=== PATIENT | male | born 1935 | race Caucasian/White ===

== ENCOUNTER 2016-08-10 23:05 | Inpatient (IN) | payer MEDICARE ==
[~2016-08-10] VITALS: Ht 188 cm; Wt 136.0 kg
[~2016-08-10 23:05] MED LIST: ASPIRIN EC81 MG PO; COUMADIN5 MG PO; EUCERIN CREME57 GM TP; LANOXIN DPS0.125 MG PO; LASIX DPS40 MG PO; LEVEMIR100 UNIT/1 SQ; LIPITOR DPS40 MG PO; MAALOX DPS30 ML PO; NOVOLOG100 UNIT/2 SQ; SENOKOT S1 TAB PO; TEARS NATURAL D15 ML OU; TINACTIN 1% PWD45 GM TP; TOPROL XL DPS50 MG PO; TYLENOL DPS325 MG PO; UROXATRAL10 MG PO; VITAMIN B-121000 MCG PO; VITAMIN D-32000 UNI1 PO; ZESTRIL DPS5 MG PO
--- NOTE | 2016-08-12 10:40 | HP ---
ADMIT: 08/11/2016 RM/LOC: 310 [facility] MR#: [id number] [id number] [place], [place] [address] MIO SHERWOOD [address] [place] [address] History and Physical SEX: M AGE: 80 : 1935 Corrected: 08/11/2016 1028 njv DATE OF SERVICE: CHIEF COMPLAINT: Abdominal pain. HISTORY OF PRESENT ILLNESS: The patient is an 80-year-old [place] , presented to ER with approximately 6 hours of abdominal pain, who was given multiple doses of Dilaudid and Ativan as well as started on vancomycin and Zosyn and given 30 mL/kg fluid bolus. He had lactic acidosis. Abdominal CT which was negative for acute process. The patient is somewhat drowsy, currently difficult to obtain further history from. He notes abdominal pain. Denies chest pain. PAST MEDICAL HISTORY: AAA, stroke, gout, atrial fibrillation, hyperlipidemia, CHF, diabetes, GI bleed, atrial thrombus, ischemic heart disease. PAST SURGICAL HISTORY: Cholecystectomy. ALLERGIES: NONE. MEDICATIONS: 1. Xarelto 20 daily. 2. NovoLog 10 in the morning. 3. Levemir 43 b.i.d. 4. NovoLog 10 in the evening. 5. Atorvastatin 40 at bedtime. 6. Vitamin D3 daily. 7. Digoxin 0.125 daily. 8. Furosemide 40 daily. 9. Lisinopril 5 b.i.d. 10.Toprol 100 daily. 11.Aspirin 81 daily. 12.Vitamin B12, 1000 mcg daily. 13.Allopurinol b.i.d. 14.Senna as needed. FAMILY HISTORY: Diabetes. REVIEW OF SYSTEMS: Positive for abdominal pain. The patient denies any other symptoms. Somewhat difficult to obtain history from. SOCIAL HISTORY: Benign. OBJECTIVE: VITAL SIGNS: Temp 93.9, pulse 85, respirations 22, blood pressure 165/83, O2 saturation of 92%. GENERAL: He is alert, awake, drowsy, oriented to city and state, and pain. HEENT: Head normocephalic and atraumatic. Pupils are round and reactive to light. ADMIT: 08/11/2016 RM/LOC: 310 [facility] MR#: [id number] [address] [address] [place] [address] History and Physical SEX: M AGE: 80 : 1935 HEART: Regular. LUNGS: Decreased throughout with slight inspiratory and expiratory wheezing. ABDOMEN: Soft, somewhat tender, obese. EXTREMITIES: No clubbing or cyanosis. There is trace edema. NEURO: Cranial nerves II though XII are grossly intact. No focal, motor, or sensory deficits, somewhat difficult to perform neurologic exam. LABORATORY DATA: Troponin 2.72. Lactic acid of 9.4. Urine 1+ protein, greater than 1000 glucose. INR of 1.59. Sodium 140, potassium 3.6, chloride 104, CO2 of 19, BUN 39, glucose 350, creatinine 2.4, calcium 8.8, phosphorus 3.4 bilirubin is 0.5, total protein 7.2, albumin 3, alkaline phosphatase 117, AST 45, ALT is 23, magnesium is 2.1. is 0.049. White count 11.1, hemoglobin 15.5, platelets 246. Blood cultures, no growth. ASSESSMENT: An 80-year-old male with: 1. Fos-NQ-[id number] elevation myocardial infarction. 2. Lactic acidosis. 3. Abdominal pain. 4. Congestive heart failure. 5. Diabetes. 6. Hyperlipidemia. 7. History of cerebrovascular accident. PLAN: Surgery was contacted in the ER. We will also bring Critical Care and Cardiology on board as well as Palliative Care. I will get hold of his POA regarding goals of care. See additional orders. The patient is critically ill. ADDENDUM: CT abdomen and pelvis without contrast shows probable gastroenteritis. No other acute findings. Albert Russo MD/ pepe JOB #: [id number] CC: Albert Russo, Attending Physician Albert Russo, Family Physician Corrected: 08/11/2016 1028 njv
--- NOTE | 2016-08-20 07:22 | ER ---
ADMIT: 08/11/2016 RM/LOC: 310 [facility] MR#: [id number] [address] [address] SHERWOODMOI SALAS [address] [place] [address] Emergency Room Report SEX: M AGE: 80 : 1935 DATE: 08/10/2016 CHIEF COMPLAINT: Abdominal pain. HISTORY OF PRESENT ILLNESS: The patient is an 80-year-old male, presents to the ER complaining of abdominal pain. This began a couple hours ago, began fairly, acutely has been persistent since onset. When asked to try to describe the pain, the patient has a difficult time doing so. He states it just hurts all over and when asked directly if it is sharp pain or stabbing pain or aching pain, he says all of those. He does have some chronic back pain which is present, but is not any worse at this time. He denies specifically having any chest pain or new shortness of breath. He states he has not been sick recently. Denies any fevers, chills, has not been having any vomiting or change in bowel or bladder function. REVIEW OF SYSTEMS: A 10-point review of systems is done and otherwise negative except as in HPI. PAST MEDICAL HISTORY: Significant for: 1. Atrial fibrillation, currently on Xarelto. 2. CVA. 3. Hypertension. 4. Hyperlipidemia. 5. Gout. 6. CHF. 7. AAA repair. PAST SURGICAL HISTORY: He has had a repair of his abdominal aortic aneurysm, cholecystectomy. MEDICATIONS: See nurse's note for complete list. He had been on Coumadin, but has been switched in the last month per onto Xarelto. SOCIAL HISTORY: The patient lives with . Denies any smoking drug or alcohol use. PHYSICAL EXAMINATION: VITAL SIGNS: Initial blood pressure is 184/92, pulse 75, respirations 19, temp 96.3, saturations 95%. GENERAL: The patient is alert, but does appear uncomfortable, does appear somewhat anxious and has complained of abdominal pain when I first spoke to him. He is able to answer my questions appropriately. He is oriented. Airway is patent. HEART: Irregular, but not tachycardic. LUNGS: Clear to auscultation. ABDOMEN: Quite obese. It does appear to be diffusely tender, but very limited in my ability to do a good physical exam due to his body habitus. EXTREMITIES: He does have pedal edema in bilateral lower extremities, proximally 2+, which is not new for him. He does have some venous stasis changes in bilateral lower extremities also. ADMIT: 08/11/2016 RM/LOC: 310 [facility] MR#: [id number] [address] [address] MIO SHERWOOD [address] [place] [address] Emergency Room Report SEX: M AGE: 80 : 1935 SKIN: Warm and dry. He has good pulses in all 4 extremities. NEUROLOGICAL: Sensation and motor are grossly intact. LABORATORY DATA: White count 11.1, hemoglobin 15.5, platelets of 246. Sodium 140, potassium 3.6, carbon dioxide 19, BUN 39, glucose 350, creatinine 2.4. AST 45, ALT 23, CK 82, MB 1.2. Troponin is slightly elevated at 0.049. INR is 1.59. First lactic acid was 6.6, with a repeat lactic acid of 9.4. Procalcitonin is less than 0.05. IMAGING: EKG shows AFib rhythm. He does have some T-wave depression in IV, V, . CT scan of abdomen is done without contrast due to his elevated creatinine and it shows; 1. Fluid in the proximal colon, which is nonspecific and may be due to ileus or enteritis. 2. Infiltration of subcutaneous fat in the anterior abdominal wall. 3. Abdominal aortic aneurysm without evidence of rupture. EMERGENCY DEPARTMENT COURSE: The patient arrived, he did appear quite uncomfortable. Due to his underlying medical problems which were quite significant and his degree of pain, I am concerned that the patient could be septic, we did our sepsis routine on this patient. He did receive Dilaudid and Ativan initially for pain, which significantly improved his pain. He did receive some repeat doses of Ativan and 1 more dose of Dilaudid while he was in the ER to keep his pain controlled. When I got his lactic acid that was elevated, we went ahead and initiated our fluid resuscitation at 30 mL/kg. He also received antibiotics in the Emergency Department with a dose of Zosyn and vancomycin. I kept the patient in the Emergency Department to see if I could get any response to fluid resuscitation as far as his lactic acid. A repeat lactic acid was drawn after the majority of his fluid resuscitation was in and his lactic acid actually increased to 9.4. At this point, I believe the patient needed to go to the ICU and we arranged for admission in the ICU and I spoke to Dr. Russo, who is on this evening for city call, and I believe the patient actually been seen by family practice in followup appointment after ADMIT: 08/11/2016 RM/LOC: 310 [facility] MR#: [id number] [address] [address] MIO SHERWOOD [address] [place] [address] Emergency Room Report SEX: M AGE: 80 : 1935 previous admission. Additionally, I spoke to Dr. Brownlee, who is on for Surgery, and made him aware of my concern that the patient could potentially have some ischemic bowel. DIAGNOSES: 1. Abdominal pain. 2. Lactic acidosis. 3. Gerfh-jt-fixbhot renal insufficiency. 4. Diabetes. 5. Atrial fibrillation. The patient is admitted in critical condition to the ICU and 1-1/2 hours of critical care time was spent on this patient. Jose Lacne MD/ pepe JOB #: [id number] CC: Albert Russo MD, Attending Physician Albert Russo MD, Family Physician
--- NOTE | 2016-09-19 15:03 | CO ---
ADMIT: 08/11/2016 RM/LOC: 310 [facility] MR#: [id number] [address] [address] MIO SHERWOOD [address] [place] [address] Consultation SEX: M AGE: 80 : 1935 DATE OF CONSULTATION: 08/11/2016 ATTENDING PHYSICIAN: Albert Russo CONSULTING PHYSICIAN: Dmitriy Zamora MD REASON FOR CONSULTATION: Elevated troponin. Jesika Reid RN, scribing for Dr. Pradeep Zamora. HISTORY OF PRESENT ILLNESS: Phill is a pleasant 80-year-old gentleman I have been asked to see in Cardiology consultation by Dr. Parvez Russo for elevated troponin. He follows regularly with Dr. Rashid Pedraza, he was seen in May of this year. He has history of CVA in February after having left atrial thrombus. He also had a mobile atheroma in the ascending aorta. Last office visit, he did have some visual changes but overall had been doing stable. He presented early this morning late last night with severe abdominal pain, potential ischemic bowel. He then was found to have lactic acidosis. This morning, his lactic acid level was 10. He was having acute respiratory failure, and Critical Care Pulmonology is here with plans to intubate. He is arousable to verbal stimuli, but falls right back to sleep. He denies any chest pain. He does report shortness of breath. Cardiac enzymes were drawn. Initial set was negative. Second set shows CK of 232, MB of 8.4, and a troponin of 2.72. Family is not currently at bedside. PAST MEDICAL HISTORY: 1. Hypertension. 2. Hyperlipidemia. 3. Diabetes. 4. Left atrial thrombus. 5. 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 6. Permanent atrial fibrillation. 7. Diabetes. 8. History of stroke. ALLERGIES: NO KNOWN MEDICATION ALLERGIES. MEDICATIONS: Currently, home medications are being held. He is on Diprivan and fentanyl drip for intubation. FAMILY HISTORY: Noncontributory. SOCIAL HISTORY: Cipriano is . He lives at home with his . No tobacco use, alcohol, or drug use. REVIEW OF SYSTEMS: Unobtainable due to the patient's limited arousable state. PHYSICAL EXAMINATION: VITAL SIGNS: Blood pressure 155/83, heart rate 85, respirations 22, temperature 93.9, oxygenation 92% on mask. ADMIT: 08/11/2016 RM/LOC: 310 [facility] MR#: [id number] [address] [address] [place] [address] Consultation SEX: M AGE: 80 : 1935 GENERAL: White male, somnolent, no acute distress currently. SKIN: With venous stasis changes in lower extremities. EYES: Sclerae clear. No xanthelasmas. ENT: Oral mucosa is pink and moist. No jugular venous distention or carotid bruits. CHEST: Respirations are even and unlabored. Lungs are clear to auscultation. HEART: Irregularly irregular. ABDOMEN: Soft and nontender. MUSCULOSKELETAL: Gait is normal. EXTREMITIES: Peripheral pulses palpable. No clubbing, cyanosis or edema. PSYCHIATRIC: Not able to assess. NEURO: Not able to assess. DIAGNOSTIC DATA: Sodium 143, potassium 5.6, BUN 36, creatinine 2.5, glucose 311, AST 45, ALT 783 which is elevated from a few hours ago, magnesium 2.1. INR 1.59. CK 232, MB 8.4. Troponin 2.72 on second set. White blood cell count 13.5, hemoglobin 14.5, hematocrit 47.4, platelets 193. Lactic acid 10.5. ASSESSMENT AND PLAN: 1. Acute coronary syndrome. 2. Abnormal trop. 3. Permanent atrial fibrillation. 4. Diabetes. 5. Lactic acidosis. 6. Cerebrovascular accident. 7. Ischemic bowel, questionable. I suspect enzymes and possible EKG changes are due to metabolic abnormalities. I will continue to trend cardiac enzymes and EKG. Check echocardiogram for changes in wall motion, ejection fraction, valvular function, as well as to evaluate for any thrombus. Continue Coumadin unless Surgery needs help for bowel issues. Thank you for the consult. I have read and agree with the documentation that has been completed regarding this visit. By signing this record, I attest that the documentation was completed in my physical presence and is an accurate record of the encounter. Jesika Reid RN / Dmitriy Zamora MD / pepe JOB #: [id number] CC: Albert Russo, Attending Physician Albert Russo, Family Physician
--- NOTE | 2016-09-20 13:25 | CO ---
ADMIT: 08/11/2016 RM/LOC: 310 [facility] MR#: [id number] [address] [address] MUSTAPHA SHERWOOD [address] [place] [address] Consultation SEX: M AGE: 80 : 1935 DATE OF CONSULTATION: 08/11/2016 ATTENDING PHYSICIAN: Albert Russo CONSULTING PHYSICIAN: Teja Baer MD REASON FOR CONSULTATION: Abdominal pain and enteritis seen on CAT scan. HISTORY OF PRESENT ILLNESS: Mustapha, an 80-year-old male, who came in to the ER for abdominal pain. The patient has just been intubated, so the bulk of my history was obtained from hospital records and family history. Family reports that the patient woke up yesterday morning with intense sharp diffuse abdominal pain throughout. Denies ever having prior events like this before. Because of the symptoms, he arrived to the emergency room via ambulance. At the time of arrival of the deck worker, the patient did feel nauseous and had one times emesis. Family denies hematemesis, diarrhea, dark or bloody stools. He has had some recent problems with constipation. He has also had some night sweats for the last several days. PAST MEDICAL HISTORY: Significant for CVA, atrial fibrillation, hypertension, hyperlipidemia, gout, CHF, and AAA. PAST SURGICAL HISTORY: 1. AAA repair. 2. Laparoscopic cholecystectomy. ALLERGIES: NO KNOWN DRUG ALLERGIES. MEDICATIONS: Well documented in the chart. FAMILY HISTORY: Noncontributory. SOCIAL HISTORY: The patient denies any tobacco, alcohol, or illicit drug use. REVIEW OF SYSTEMS: CONSTITUTIONAL: The patient has been having some night sweats but denies fevers or chills. SKIN: Rash at the waist line, believed to be yeast infection but denies any changes to hair or nails or pruritus. The rest of comprehensive 10-point review of systems was performed and all other systems are negative. PHYSICAL EXAMINATION: GENERAL: The patient is intubated. HEENT: Head is normocephalic and atraumatic. Pinnae free of deformities. Nose midline. No tracheal deviation. SKIN: Negative for jaundice, clubbing, edema, pallor, or cyanosis. Rash clearing up at waistline, inferior to abdomen. LUNGS: The patient is intubated. HEART: Regular rate and rhythm. Hypotensive. ABDOMEN: Soft and nondistended. MUSCULOSKELETAL: Good muscle tone in all 4 extremities. ADMIT: 08/11/2016 RM/LOC: 310 [facility] MR#: [id number] [address] [address] [place] [address] Consultation SEX: M AGE: 80 : 1935 LABORATORY DATA: PH 7.104. Creatinine 2.5. Troponin 2.72. White blood cell count 13.5, hemoglobin 14.5, potassium 5.6. Lactic 10.5. DIAGNOSTIC IMAGING: Gastroenteritis seen on CT of abdomen and pelvis. ASSESSMENT: 1. Sepsis. 2. Gastroenteritis. PLAN: Given the patient's acute illness, he is not a candidate for surgery at this time. He is also on blood thinners and unsure of last dose. We will follow him closely in the ICU, however, and maybe repeat CAT scan down the road should the patient's condition improved. I discussed this plan with the family, which they are in agreement with the plan, had all their questions answered and would like to proceed. At this time, he is a full code. Thank you for the consultation of this patient. RIGOBERTO Dc / Teja Baer MD / pepe JOB #: [id number] CC: Albert Russo, Attending Physician Albert Russo, Family Physician
--- NOTE | 2016-09-22 20:17 | DS ---
ADMIT: 08/11/2016 RM/LOC: 310 [facility] MR#: [id number] [address] [address] SHERWOODMIO Nora [address] [place] [address] General Discharge Summary SEX: M AGE: 80 : 1935 ADMISSION DATE: 08/11/2016 DISCHARGE DATE: 08/11/2016 CAUSE OF : Include: 1. Non-ST segment elevation myocardial infarction. 2. Lactic acidosis. 3. Respiratory failure. 4. Possible ischemic bowel. DATE OF PASSIN/30 TIME: Not charted. Albert Russo MD/ modl JOB #: [id number] CC: Albert Russo MD, Attending Physician Albert Russo MD, Family Physician
== END 2016-08-11 16:12 | disposition expired | DRG 871 ==
LOC: ER 23:05 → 3ICU 08-11 03:36
PROVIDERS: ADMIT Family Medicine
DX: A41.9 Sepsis, unspecified organism (principal); J96.00 Acute respiratory failure, unspecified whether with hypoxia or hypercapnia; I21.4 Non-ST elevation (NSTEMI) myocardial infarction; Z51.5 Encounter for palliative care; E87.2 Acidosis; I13.0 Hypertensive heart and chronic kidney disease with heart failure and stage 1 through stage 4 chronic kidney disease, or unspecified chronic kidney disease; K55.9 Vascular disorder of intestine, unspecified; I50.9 Heart failure, unspecified; K52.9 Noninfective gastroenteritis and colitis, unspecified; I48.2 Chronic atrial fibrillation; E78.5 Hyperlipidemia, unspecified; M10.9 Gout, unspecified; N18.9 Chronic kidney disease, unspecified; E11.22 Type 2 diabetes mellitus with diabetic chronic kidney disease; Z86.79 Personal history of other diseases of the circulatory system; Z79.01 Long term (current) use of anticoagulants; Z86.73 Personal history of transient ischemic attack (TIA), and cerebral infarction without residual deficits; Z79.4 Long term (current) use of insulin; Z79.82 Long term (current) use of aspirin; Z66 Do not resuscitate